=== PATIENT | male | born 1990 | race African-American/Black ===

== ENCOUNTER 2022-06-12 15:10 | Emergency (ER) | payer SELFPAY ==
[~2022-06-12] VITALS: Ht 172.7 cm; Wt 104.3 kg
== END 2022-06-12 16:15 | disposition home or self-care (01) ==
LOC: ER 15:15
DX: R51.9 Headache, unspecified (principal); M79.10 Myalgia, unspecified site; J45.909 Unspecified asthma, uncomplicated; Z20.822 Contact with and (suspected) exposure to COVID-19
CPT/HCPCS: 99283